=== PATIENT | female | born 1985 | race Caucasian/White ===

== ENCOUNTER 2018-09-15 23:50 | Emergency (ER) | payer BC ==
[~2018-09-15] VITALS: Ht 175.3 cm; Wt 81.6 kg
[2018-09-16] MEDS ORDERED: VANCOMYCIN IV 200 ML ONE (00:08)
[2018-09-16] MEDS ORDERED: SULFAMETH/TRIMETH 800/160 MG TABLET ONE (00:12)
[2018-09-16] MEDS ORDERED: SULFAMETH/TRIMETH 800/160 MG TABLET PO ONE (00:15)
[2018-09-16] MEDS ORDERED: VANCOMYCIN IV 1,000 MG in IV DEXTROSE 5% 250 ML IV ONE (00:15)
--- NOTE | 2018-09-16 00:20 | NUR ---
Patient ambulated with stable gait. A/Ox4. Speech clear, speaks in complete sentences. No neuro deficits. Patient came for c/o insect bite on her RFA. Patient noticed the "bite" this morning without any evidence of redness or inflammation. A few hours [employer], patients RFA is red and inflammed. Respiratory even and unlabored, no cough no sob. No GI/ distress, denies any n/v/d. Patient in bed at lowest position, sr upx2, call light within reach. Fall precautions implemented per protocol.
[2018-09-16] MEDS ORDERED: diphenhydrAMINE 50 MG/1 ML VIAL ONE (02:10)
[2018-09-16] MEDS ORDERED: diphenhydrAMINE 50 MG/1 ML VIAL IV ONE (02:15)
[2018-09-16 02:37] VITALS: BP 112/73
--- NOTE | 2018-09-16 02:37 | NUR ---
Patient discharged to home in stable conditon. Written and verbal after care instructions given. Patient verbalizes understanding of instructions. Patient ambulated with stable gait.
== END 2018-09-16 02:38 | disposition home or self-care (01) ==
LOC: ER 23:53
DX: L03.113 Cellulitis of right upper limb (principal); I89.1 Lymphangitis
CPT/HCPCS: 87070; 96365; 96366; 96375; 99283; J1200; J3370; 87077; A4663

== ENCOUNTER 2018-10-30 04:34 | Emergency (ER) | payer BC ==
[~2018-10-30] VITALS: Ht 175.3 cm; Wt 80.7 kg
[2018-10-30] MEDS ORDERED: predniSONE 50 MG TABLET ONE (04:55)
[2018-10-30] MEDS ORDERED: EPINEPHRINE 1 MG/1 ML AMP ONE (04:56)
[2018-10-30] MEDS ORDERED: diphenhydrAMINE 50 MG CAPSULE ONE (04:57)
--- NOTE | 2018-10-30 04:58 | NUR ---
ER physician at bedside.
[2018-10-30] MEDS: diphenhydrAMINE 50 MG CAPSULE PO ONE (05:04)
[2018-10-30] MEDS: predniSONE 10 MG TABLET PO ONE (05:04)
[2018-10-30] MEDS: EPINEPHRINE 1 MG/1 ML AMP SQ ONE (05:05)
[2018-10-30 05:48] VITALS: BP 121/76
--- NOTE | 2018-10-30 05:49 | NUR ---
Patient discharged to home in stable conditon. Written and verbal after care instructions given. Patient verbalizes understanding of instructions. patient self ambulatory with steady gait. Alert and oriented. denies any respiratory distress or discomfort. Patient friend at bedside and states she will be dricing the patient home. Patient belongings and exit care package taken with patient
== END 2018-10-30 05:46 | disposition home or self-care (01) ==
LOC: ER 04:38
DX: L50.9 Urticaria, unspecified (principal)
CPT/HCPCS: A4663; J0171; J7512; Q0163

== ENCOUNTER 2019-12-24 18:25 | Emergency (ER) | payer BC ==
[~2019-12-24] VITALS: Ht 175.3 cm; Wt 76.2 kg
--- NOTE | 2019-12-24 18:37 | NUR ---
Dr Contreras at the bedside for MSE.
[2019-12-24 19:19] LABS: *BILIRUBIN,URIN NEGATIVE (NEGATIVE); *BLOOD, URINE NEGATIVE (NEGATIVE); *CLARITY,URINE CLEAR (CLEAR); *COLOR,URINE YELLOW (YELLOW); *KETONES,URINE 1+ (NEGATIVE); *UROBILINOGEN,URINE 0.2 E.U./dl (NORMAL); LEUKOCYTE ESTERASE ,URINE TRACE (NEGATIVE); NITRITE, URINE NEGATIVE (NEGATIVE); PH,URINE 5.5 (5.0-8.0); UGLUCOSE NEGATIVE (NEGATIVE)
[2019-12-24 19:24] LABS: *URINE HCG, QUAL NEGATIVE (NEGATIVE)
[2019-12-24 19:43] LABS: BASOPHILS # (AUTO) 0.1 K/uL (0.0-8.0); BASOPHILS % (AUTO) 0.6 % (0.0-2.0); EOSINOPHILS # (AUTO) 0.1 K/uL (0.0-0.7); EOSINOPHILS % (AUTO) 1.2 % (0.0-7.0); HEMATOCRIT 37.9 % (31.2-41.9); HEMOGLOBIN 12.6 g/dL (10.9-14.3); LYMPHOCYTES # (AUTO) 2.7 K/uL (20.0-40.0); LYMPHOCYTES % (AUTO) 27.9 % (20.5-51.5); MEAN CORPUSCULAR HEMOGLOBIN 26.8 uug (24.7-32.8); MEAN CORPUSCULAR HGB CONC 33 g/dL (32.3-35.6); MEAN CORPUSCULAR VOLUME 80.7 fL (75.5-95.3); MONOCYTES # (AUTO) 0.6 K/uL (2.0-10.0); MONOCYTES % (AUTO) 6.7 % (0.0-11.0); NEUTROPHILS # (AUTO) 6.1 K/uL (1.8-8.9); NEUTROPHILS % (AUTO) 63.6 % (38.5-71.5); PLATELET COUNT (AUTO) 257 K/uL (179-408); RED BLOOD CELL COUNT(AUTO) 4.69 MIL/uL (3.63-4.92); WHITE BLOOD COUNT (AUTO) 9.6 K/uL (3.8-11.8)
[2019-12-24 19:52] LABS: BACTERIA,URINE NONE SEEN /HPF (NONE SEEN); RBC,URINE 0-3 /HPF (0-3); SQUAMOUS EPITHELIAL CELL,UR FEW /HPF (NONE SEEN)
[2019-12-24 19:58] LABS: CREATININE 0.7 mg/dL (0.6-1.3); POTASSIUM 3.5 mmol/L (3.5-5.1)
[2019-12-24 20:04] LABS: BILIRUBIN,DIRECT 0.1 mg/dL (0.0-0.2); BILIRUBIN,TOTAL 0.2 mg/dL (0.2-1.0); TOTAL PROTEIN, SERUM 7.1 g/dL (6.4-8.2)
--- NOTE | 2019-12-24 20:14 | NUR ---
Patient discharged to home in stable condition. Written and verbal after care instructions given. Patient verbalizes understanding of instructions. Stressed follow up or return to ER for worsening s/s.
[2019-12-24 20:15] VITALS: BP 138/69
== END 2019-12-24 20:16 | disposition home or self-care (01) ==
LOC: ER 18:26
DX: M79.604 Pain in right leg (principal); N83.201 Unspecified ovarian cyst, right side; R21 Rash and other nonspecific skin eruption
CPT/HCPCS: 36415; 76856; 84703; 85025; 85730; A4663

== ENCOUNTER 2024-10-24 23:39 | Emergency (ER) | payer BC ==
[~2024-10-24] VITALS: Ht 175.3 cm; Wt 78.5 kg
[2024-10-25 00:44] LABS: CREATININE 0.6 mg/dL (0.6-1.3); PLATELET COUNT (AUTO) 286 K/uL (179-408); RED BLOOD CELL COUNT(AUTO) 4.46 MIL/uL (3.63-4.92); RED CELL DISTRIBUTION WIDTH 14.2 % (12.3-17.7); SODIUM SERUM 138.0 mmol/L (136-145); UREA NITROGEN, BLOOD 26.0 mg/dL (7-18); WHITE BLOOD COUNT (AUTO) 8.6 K/uL (3.8-11.8)
[2024-10-25 00:49] LABS: ASPARTATE AMINOTRANSFERASE 6.0 U/L (15-37); TOTAL PROTEIN, SERUM 7.2 g/dL (6.4-8.2)
[2024-10-25 01:13] LABS: *BILIRUBIN,URIN NEGATIVE (NEGATIVE); *CLARITY,URINE CLEAR (CLEAR); *COLOR,URINE YELLOW (YELLOW); *KETONES,URINE NEGATIVE (NEGATIVE); *PROTEIN,URINE NEGATIVE (NEGATIVE); *UROBILINOGEN,URINE 0.2 E.U./dl (NORMAL); LEUKOCYTE ESTERASE ,URINE NEGATIVE (NEGATIVE); NITRITE, URINE NEGATIVE (NEGATIVE); UGLUCOSE NEGATIVE (NEGATIVE)
[2024-10-25 01:19] LABS: *BLOOD, URINE TRACE (NEGATIVE)
[2024-10-25 01:33] LABS: SQUAMOUS EPITHELIAL CELL,UR MODERATE /HPF (NONE SEEN)
[2024-10-25 01:45] LABS: *URINE HCG, QUAL NEGATIVE (NEGATIVE)
[2024-10-25 02:13] VITALS: BP 116/74; TEMP 98; O2SAT 98
== END 2024-10-25 02:14 | disposition home or self-care (01) ==
LOC: ER 23:39
DX: I82.812 Embolism and thrombosis of superficial veins of left lower extremity (principal); R10.31 Right lower quadrant pain; M79.604 Pain in right leg; M79.605 Pain in left leg; Z88.7 Allergy status to serum and vaccine
CPT/HCPCS: 36415; 84703; 85025; A4606; A4663